=== PATIENT | female | born 1965 | race Hispanic/Latino ===

== ENCOUNTER 2022-12-19 11:33 | Emergency (ER) | payer OTHER ==
[~2022-12-19] VITALS: Ht 157.5 cm; Wt 82.1 kg
[2022-12-19] MEDS ORDERED: CLINDAMYCIN HC150 MG PO (11:59)
[2022-12-19 13:14] VITALS: BP 142/78
== END 2022-12-19 12:10 | disposition home or self-care (01) ==
LOC: ER 11:48
DX: N61.0 Mastitis without abscess (principal)
CPT/HCPCS: 99282